=== PATIENT | male | born 1935 | race Caucasian/White ===

== ENCOUNTER → 2018-08-29 | Outpatient (CLI) | payer MEDICARE, OTHER ==
[~2018-08-29] MED LIST: ADDERALL5 MG PO; ALAVERT10 M1 PO; AMBIEN 5MG TABLE5 MG PO; ANTIVERT 25MG25 MG PO; ASPIRIN 32325 MG/TAB PO; ASPIRIN 81M81 MG/TA2 PO; B-121000 MCG PO; CEFTIN250 MG PO; CELEXA10 MG PO; CEPHALEXIN500 M1 PO; CIPRO 500MG TA500 MG PO; CLARITIN 1010 MG/TAB PO; COZAAR 25MG25 MG/TAB PO; COZAAR 50MG50 MG/TAB PO; COZAAR100 MG PO; DILAUDID 2MG TAB2 MG PO; DOLOPHINE HCL5 MG PO; ECOTRIN325 MG PO; FLEXERIL 1010 MG/TAB PO; FOLIC ACID; FOLIC ACID 11 MG/TA1 PO; FORTAMET1000 MG PO; GLUCOPHAGE; GLUCOPHAGE1000 MG PO; ISMO 20MG20 MG PO; K-LOR CON; KLOR-CON 1010 MEQ PO; KLOR-CON M2020 MEQ PO; LEVOTHYROXIN0.075 MG PO; LISINOPRIL PO; LISINOPRIL2.5 MG PO; LOPRESSOR 550 MG/TAB PO; LORTAB 5/500 501 TAB PO; METFORMIN HCL1000 MG PO; METHADONE HC5 MG/TAB PO; MINIPRESS 1M1 MG/CAP PO; MOTRIN 800800 MG/TAB PO; NAPROSYN500 MG PO; NIACIN 250250 MG/CAP PO; NIACIN500 M3 PO; NIACIN500 M4 PO; NIASPAN 500MG500 MG PO; NITROSTAT0.4 MG/TAB SL; NORCO 325 MG-7.1 TAB PO; PERCOCET 5/321 UDTAB PO; POTASSIUM CH2 MEQ/ML PO; PRAVACHOL80 MG PO; PRILOSEC; PRILOSEC 20MG20 MG PO; PYRIDIUM 100MG100 MG PO; ROPINAROLE; ROXICODONE 55 MG/TAB PO; SLO-NIACIN500 MG PO; SYNTHROID0.075 MG/T PO; TOPROL XL50 MG PO; TYLENOL 325MG325 MG PO; VERAPAMIL 440 MG/TAB PO; VERAPAMIL180 MG/TAB PO; VITAMIN B12 PO; ZOCOR40 MG PO; ZOCOR80 MG PO; [UNRECOGNIZED DRUG - OTHER]; [UNRECOGNIZED DRUG - OTHER]; [UNRECOGNIZED DRUG - OTHER]; [UNRECOGNIZED DRUG - OTHER] PO; [UNRECOGNIZED DRUG - REMARK]
== END ==
LOC: COL.RAD 14:10
DX: Z01.812 Encounter for preprocedural laboratory examination (principal); K31.89 Other diseases of stomach and duodenum; Z95.0 Presence of cardiac pacemaker; Z90.49 Acquired absence of other specified parts of digestive tract
CPT/HCPCS: Q9967

== ENCOUNTER 2019-11-10 09:39 | Day surgery (SDC) | payer MEDICARE, OTHER ==
[~2019-11-10] VITALS: Ht 175.5 cm; Wt 86.0 kg
[2019-11-10] VITALS (12 sets, daily range): BP systolic 120–153; BP diastolic 70–100; PULSE 54–62; TEMP 97.5
[2019-11-10 10:43] LABS: HEMATOCRIT 36.2 % (42.0-52.0); HEMOGLOBIN 11.8 g/dl (13.5-18.0); MEAN CELL VOLUME 93 fl (80.0-100.0); MEAN CORPUSCULAR HEMOGLOBIN 30 pg (27.0-31.0); MEAN CORPUSCULAR HGB CONC 33 g/dl (33.0-37.0); MEAN PLATELET VOLUME 10.2 fl (7.4-10.4); PLATELET COUNT 228 K/mm3 (130-400); RED BLOOD COUNT 3.89 M/mm3 (4.20-5.60); REDCELL DISTRIBUTION WIDTH-CV 13.6 % (11.5-14.5)
[2019-11-10 10:47] LABS: INR 1.1 (0.8-3.0); PROTHROMBIN TIME 12.8 SECONDS (9.7-12.8)
[2019-11-10 10:54] LABS: CREATININE, serum 1.64 (0.66-1.25); POTASSIUM 3.8 mmol/L (3.4-5.0)
[2019-11-10] MEDS ORDERED: BENTYL 10MG10 MG/CAP PO (11:03)
[2019-11-10] MEDS ORDERED: ANTIVERT 25MG25 MG PO (11:06)
[2019-11-10] MEDS ORDERED: COZAAR100 MG PO (11:06)
[2019-11-10] MEDS ORDERED: MINIPRESS 1M1 MG/CAP PO (11:11)
[2019-11-10] MEDS ORDERED: B-121000 MCG PO (11:11)
--- NOTE | 2019-11-10 11:55 | NUR ---
SEE [facility] FOR ALL MEDICATION ADMIN TIMES AND INTRA AND POST SEDATION ASSESSMENT
[2019-11-10] MEDS ORDERED: ZEBETA 5MG5 MG PO (13:13)
--- NOTE | 2019-11-10 17:20 | NUR ---
Pt and are assisted out to car, in her personal wheelchair, pt by hospital wheelchair. INT was DC'd with catheter intact, and bleeding controlled. No bleeding from rt wrist puncture site. Site dressed with 2x2 gauze and bandaid. Deflated TR band and arm board sent with pt.
== END 2019-11-10 17:00 | disposition home or self-care (01) ==
LOC: COL.CAR 09:39
PROVIDERS: Internal Medicine Cardiovascular Disease
DX: I25.10 Atherosclerotic heart disease of native coronary artery without angina pectoris (principal); I10 Essential (primary) hypertension; I25.2 Old myocardial infarction; E11.9 Type 2 diabetes mellitus without complications; I47.2 Ventricular tachycardia; I49.5 Sick sinus syndrome; I07.1 Rheumatic tricuspid insufficiency; E78.2 Mixed hyperlipidemia; F43.10 Post-traumatic stress disorder, unspecified; Z98.61 Coronary angioplasty status; Z85.46 Personal history of malignant neoplasm of prostate; Z20.828 Contact with and (suspected) exposure to other viral communicable diseases; Z95.0 Presence of cardiac pacemaker; Z88.8 Allergy status to other drugs, medicaments and biological substances; Z96.652 Presence of left artificial knee joint; Z79.82 Long term (current) use of aspirin; Z79.899 Other long term (current) drug therapy; Z87.891 Personal history of nicotine dependence
CPT/HCPCS: C1769; C1887; J1644; J2250; J3010

== ENCOUNTER 2020-04-19 17:20 | Emergency (ER) | payer MEDICARE, OTHER ==
[~2020-04-19] VITALS: Ht 175.3 cm; Wt 86.4 kg
[~2020-04-19 17:20] MED LIST changes: +BENTYL 10MG10 MG/CAP PO; +ZEBETA 5MG5 MG PO
[2020-04-19 17:37] VITALS: TEMP 97.6
[2020-04-19 19:41] LABS: ALBUMIN 4.4 gm/dL (3.5-5.0); BASO % 0.3 % (0.0-2.0); BILIRUBIN,TOTAL 0.9 mg/dL (0.0-1.0); CALCIUM 9.3 mg/dL (8.4-10.2); CREATININE, serum 1.57 (0.66-1.25); EOS # 0.1 (0.0-0.7); EOS % 1.5 % (0-4.0); GRAN # 3.8 (1.4-6.5); GRAN % 62.2 % (42.2-75.2); HEMATOCRIT 38.7 % (42.0-52.0); HEMOGLOBIN 12.2 g/dl (13.5-18.0); LYMPH # 1.5 (1.2-3.4); LYMPH % 23.7 % (20.0-51.0); MEAN CELL VOLUME 94 fl (80.0-100.0); MEAN CORPUSCULAR HEMOGLOBIN 30 pg (27.0-31.0); MEAN CORPUSCULAR HGB CONC 32 g/dl (33.0-37.0); MEAN PLATELET VOLUME 10.4 fl (7.4-10.4); MONO # 0.7 (0.1-0.6); MONO % 11.8 % (1.7-9.3); PLATELET COUNT 292 K/mm3 (130-400); POTASSIUM 4.2 mmol/L (3.4-5.0); RED BLOOD COUNT 4.11 M/mm3 (4.20-5.60); REDCELL DISTRIBUTION WIDTH-CV 13.7 % (11.5-14.5); TOTAL PROTEIN 7.7 gm/dL (6.4-8.2)
[2020-04-19 19:53] LABS: TROPONIN-I 0.014 ng/mL (0.000-0.035)
[2020-04-19] MEDS ORDERED: MUCINEX 60600 MG/TA1 PO (20:08)
[2020-04-19] MEDS ORDERED: PROAIR HFA0.09 MG/AC IH (20:09)
[2020-04-19 22:16] VITALS: BP 142/70; PULSE 68
== END 2020-04-19 22:16 | disposition home or self-care (01) ==
LOC: COL.ER 17:20
PROVIDERS: Emergency Medicine
DX: J40 Bronchitis, not specified as acute or chronic (principal); M89.8X9 Other specified disorders of bone, unspecified site; R10.9 Unspecified abdominal pain; I10 Essential (primary) hypertension; E11.9 Type 2 diabetes mellitus without complications; I25.10 Atherosclerotic heart disease of native coronary artery without angina pectoris; Z95.0 Presence of cardiac pacemaker; Z20.822 Contact with and (suspected) exposure to COVID-19; Z79.82 Long term (current) use of aspirin; Z79.84 Long term (current) use of oral hypoglycemic drugs
CPT/HCPCS: J2930; J7030

== ENCOUNTER 2021-10-31 13:34 | Inpatient (IN) | payer MEDICARE, OTHER ==
[2021-10-31] VITALS (425 sets, daily range): BP systolic 147–149; BP diastolic 76–85; PULSE 67–69; TEMP 97.9–98.5; O2SAT 90–100
[~2021-10-31] VITALS: Ht 175.3 cm; Wt 83.1 kg
[~2021-10-31 13:34] MED LIST changes: +MUCINEX 60600 MG/TA1 PO; +PROAIR HFA0.09 MG/AC IH
[2021-10-31 14:06] LABS: BASO % 0.4 % (0.0-2.0); EOS # 0.1 K/mm3 (0.0-0.7); EOS % 1.6 % (0.0-4.0); GRAN # 5.7 K/mm3 (1.4-6.5); GRAN % 71.4 % (42.2-75.2); HEMOGLOBIN 10.3 g/dl (13.5-18.0); LYMPH # 0.9 K/mm3 (1.2-3.4); LYMPH % 11.3 % (20.0-51.0); MEAN CELL VOLUME 91 fl (80.0-100.0); MEAN CORPUSCULAR HEMOGLOBIN 29 pg (27-31); MEAN CORPUSCULAR HGB CONC 32 g/dl (33.0-37.0); MEAN PLATELET VOLUME 10.4 fl (7.4-10.4); MONO # 1.2 K/mm3 (0.1-0.6); MONO % 14.9 % (1.7-9.3); PLATELET COUNT 280 K/mm3 (130-400); RED BLOOD COUNT 3.53 M/mm3 (4.20-5.60); REDCELL DISTRIBUTION WIDTH-CV 16.4 % (11.5-14.5)
[2021-10-31 14:07] LABS: HEMATOCRIT 32.2 % (42.0-52.0)
[2021-10-31 14:26] LABS: INR 1.2 (0.8-3.0); PROTHROMBIN TIME 14.3 SECONDS (9.7-12.8)
[2021-10-31 14:29] LABS: ALBUMIN 2.9 gm/dL (3.4-4.8); BILIRUBIN,TOTAL 1.6 mg/dL (0.2-1.2); CALCIUM 8.9 mg/dL (8.4-10.2); CREATININE, serum 2.3 mg/dL (0.72-1.25); PARTIAL THROMBOPLASTIN TIME 29.7 SECONDS (26.0-37.0); POTASSIUM 4.8 mmol/L (3.5-4.5); TOTAL PROTEIN 6.9 gm/dL (6.2-8.1)
[2021-10-31 14:35] LABS: TROPONIN-I 0.138 ng/mL (0.00-0.033)
[2021-10-31] MEDS ORDERED: ALPHAGAN OPHTH D5 ML OU (18:47)
[2021-10-31] MEDS ORDERED: NEURONTIN300 MG/CAP PO ×2 (18:48→19:00)
[2021-10-31] MEDS ORDERED: MOTRIN 800800 MG/TAB PO (18:49)
[2021-10-31] MEDS ORDERED: XALATAN EYE DROPS OP (18:50)
[2021-10-31] MEDS ORDERED: ALL DAY ALLERGY10 M3 PO (18:51)
[2021-10-31] MEDS ORDERED: GLUCOPHAGE500 MG/TAB PO (18:52)
[2021-10-31] MEDS ORDERED: PRILOSEC 20MG20 MG (18:55)
[2021-11-01] VITALS (412 sets, daily range): BP systolic 129–158; BP diastolic 70–85; PULSE 59–77; TEMP 97.6–98.3; O2SAT 77–100
[2021-11-01 06:27] LABS: URINE APPEARANCE Clear (CLEAR/HAZY); URINE BLOOD Negative (NEGATIVE); URINE COLOR Yellow (YELLOW); URINE GLUCOSE Negative (NEGATIVE); URINE KETONE Negative (NEGATIVE); URINE NITRATE Negative (NEGATIVE); URINE PROTEIN(semi-quant) Negative (NEGATIVE); URINE UROBILINOGEN 0.2 E.U/dL (0.2-1.0)
[2021-11-01 06:31] LABS: MUCOUS Present (NOT PRESENT); SQUAMOUS EPITHELIAL None Seen /hpf (0-10); URINE BACTERIA Rare /hpf (NONE SEEN); URINE RBC 0-2 /hpf (0-2); URINE WBC None Seen /hpf (0-2)
[2021-11-01 06:53] LABS: COLLECTION METHOD CLEAN CATCH
[2021-11-01 09:46] LABS: HEMATOCRIT 35.5 % (42.0-52.0); HEMOGLOBIN 11.6 g/dl (13.5-18.0); MEAN CELL VOLUME 89 fl (80.0-100.0); MEAN CORPUSCULAR HEMOGLOBIN 29 pg (27-31); MEAN CORPUSCULAR HGB CONC 33 g/dl (33.0-37.0); MEAN PLATELET VOLUME 10.4 fl (7.4-10.4); PLATELET COUNT 343 K/mm3 (130-400); RED BLOOD COUNT 4.01 M/mm3 (4.20-5.60); REDCELL DISTRIBUTION WIDTH-CV 15.7 % (11.5-14.5)
[2021-11-01 09:59] LABS: CALCIUM 9.6 mg/dL (8.4-10.2); CREATININE, serum 2.13 mg/dL (0.72-1.25); POTASSIUM 4.2 mmol/L (3.5-4.5)
[2021-11-02] VITALS (7 sets, daily range): BP systolic 121–161; BP diastolic 69–82; PULSE 59–66; TEMP 97.5–98.5
[2021-11-02 06:28] LABS: BASO % 0.1 % (0.0-2.0); EOS % 0.1 % (0.0-4.0); GRAN # 6.6 K/mm3 (1.4-6.5); GRAN % 78.4 % (42.2-75.2); HEMOGLOBIN 10.7 g/dl (13.5-18.0); LYMPH % 11.5 % (20.0-51.0); MEAN CELL VOLUME 88 fl (80.0-100.0); MEAN CORPUSCULAR HEMOGLOBIN 29 pg (27-31); MEAN CORPUSCULAR HGB CONC 33 g/dl (33.0-37.0); MEAN PLATELET VOLUME 10.7 fl (7.4-10.4); MONO # 0.8 K/mm3 (0.1-0.6); MONO % 9.5 % (1.7-9.3); PLATELET COUNT 350 K/mm3 (130-400); RED BLOOD COUNT 3.66 M/mm3 (4.20-5.60); REDCELL DISTRIBUTION WIDTH-CV 15.6 % (11.5-14.5)
[2021-11-02 06:36] LABS: HEMATOCRIT 32.1 % (42.0-52.0)
[2021-11-02 06:55] LABS: CALCIUM 9.2 mg/dL (8.4-10.2); CREATININE, serum 1.81 mg/dL (0.72-1.25); POTASSIUM 4.1 mmol/L (3.5-4.5)
[2021-11-03] VITALS (12 sets, daily range): BP systolic 116–155; BP diastolic 67–87; PULSE 59–82; TEMP 97.5–98.6
[2021-11-03] MEDS ORDERED: TOPROL XL 25MG25 MG PO (23:52)
[2021-11-03] MEDS ORDERED: PROAIR HFA0.09 MG/AC IH (23:54)
[2021-11-03] MEDS ORDERED: PREDNISONE10 MG PO (23:54)
[2021-11-04 03:52] VITALS: BP 144/72; PULSE 59; TEMP 97.4
[2021-11-04 07:10] VITALS: BP 150/83; PULSE 62; TEMP 97.8
[2021-11-04 07:45] LABS: BASO % 0.1 % (0.0-2.0); GRAN # 8.1 K/mm3 (1.4-6.5); GRAN % 85.6 % (42.2-75.2); HEMOGLOBIN 12.1 g/dl (13.5-18.0); LYMPH # 0.8 K/mm3 (1.2-3.4); LYMPH % 8.8 % (20.0-51.0); MEAN CELL VOLUME 86 fl (80.0-100.0); MEAN CORPUSCULAR HEMOGLOBIN 29 pg (27-31); MEAN CORPUSCULAR HGB CONC 34 g/dl (33.0-37.0); MONO # 0.5 K/mm3 (0.1-0.6); MONO % 5.2 % (1.7-9.3); PLATELET COUNT 421 K/mm3 (130-400); RED BLOOD COUNT 4.14 M/mm3 (4.20-5.60); REDCELL DISTRIBUTION WIDTH-CV 15.7 % (11.5-14.5)
[2021-11-04 07:47] LABS: HEMATOCRIT 35.7 % (42.0-52.0)
[2021-11-04 08:02] LABS: CALCIUM 8.9 mg/dL (8.4-10.2); CREATININE, serum 1.88 mg/dL (0.72-1.25); POTASSIUM 4.1 mmol/L (3.5-4.5)
[2021-11-04] MEDS ORDERED: AMOXICILLIN/CLA1 TA1 PO (10:07)
[2021-11-04] MEDS ORDERED: ASPIRIN 81M81 MG/TA2 PO (11:11)
[2021-11-04 11:12] VITALS: BP 127/66; PULSE 62; TEMP 97.8
== END 2021-11-04 13:23 | disposition home or self-care (01) | DRG 291 ==
LOC: COL.ER 13:34 → ICU 15:17 → MEDICAL 15:17
PROVIDERS: Internal Medicine; Physician Assistant; ADMIT Student in an Organized Health Care Education/Training Program
DX: I13.0 Hypertensive heart and chronic kidney disease with heart failure and stage 1 through stage 4 chronic kidney disease, or unspecified chronic kidney disease (principal); J96.01 Acute respiratory failure with hypoxia; I50.31 Acute diastolic (congestive) heart failure; J44.1 Chronic obstructive pulmonary disease with (acute) exacerbation; I25.10 Atherosclerotic heart disease of native coronary artery without angina pectoris; Z96.652 Presence of left artificial knee joint; Z96.612 Presence of left artificial shoulder joint; Z20.822 Contact with and (suspected) exposure to COVID-19; E87.70 Fluid overload, unspecified; E11.22 Type 2 diabetes mellitus with diabetic chronic kidney disease; N18.9 Chronic kidney disease, unspecified; K04.7 Periapical abscess without sinus; J98.4 Other disorders of lung; E78.5 Hyperlipidemia, unspecified; Z79.890 Hormone replacement therapy; Z95.0 Presence of cardiac pacemaker; Z79.82 Long term (current) use of aspirin; Z79.84 Long term (current) use of oral hypoglycemic drugs; Z85.46 Personal history of malignant neoplasm of prostate
CPT/HCPCS: A9500; J0696; J1644; J1815; J1940; J2785; J2920; J2930

== ENCOUNTER → 2022-01-07 | Outpatient (CLI) | payer MEDICARE, OTHER ==
[~2022-01-07] MED LIST changes: +ALL DAY ALLERGY10 M3 PO; +ALPHAG-P-0.1-15 OU; +ALPHAGAN OPHTH D5 ML OU; +AMITRIPTYLINE H10 M1 PO; +AMOXICILLIN/CLA1 TA1 PO; +ELMIRON 10100 MG/CA1 PO; +GLUCOPHAGE500 MG/TAB PO; +KLONOPIN 0.5MG0.5 MG PO; +NEURONTIN300 MG/CAP PO; +PREDNISONE10 MG PO; +PRILOSEC 20MG20 MG; +TOPROL XL 25MG25 MG PO; +XALATAN EYE DROPS OP
== END ==
LOC: COL.RAD 09:58
DX: N18.4 Chronic kidney disease, stage 4 (severe) (principal); I50.9 Heart failure, unspecified; E78.5 Hyperlipidemia, unspecified